=== PATIENT | male | born 1970 | race African-American/Black ===

== ENCOUNTER 2017-10-08 14:01 | Emergency (ER) | payer SELFPAY ==
[~2017-10-08] VITALS: Ht 165.1 cm; Wt 71.7 kg
[2017-10-08 14:05] VITALS: Ht 165.1 cm; Wt 71.7 kg
[2017-10-08 19:03] VITALS: BP 123/80
== END 2017-10-08 19:03 | disposition home or self-care (01) ==
LOC: ED 14:01
DX: S01.81XA Laceration without foreign body of other part of head, initial encounter (principal); W50.0XXA Accidental hit or strike by another person, initial encounter; Y93.67 Activity, basketball; Y92.320 Baseball field as the place of occurrence of the external cause; Y99.8 Other external cause status
CPT/HCPCS: J2001

== ENCOUNTER 2017-10-16 08:26 | Emergency (ER) | payer MEDICAID ==
[2017-10-16 09:52] VITALS: BP 120/81
== END 2017-10-16 10:19 | disposition home or self-care (01) ==
LOC: ED 08:26
DX: S01.81XD Laceration without foreign body of other part of head, subsequent encounter (principal); X58.XXXD Exposure to other specified factors, subsequent encounter